=== PATIENT | male | born 1960 | race Caucasian/White ===

== ENCOUNTER 2016-07-23 14:16 | Inpatient (IN) | payer BC ==
[2016-07-23] MEDS ORDERED: TEMAZEPAM 15 MG CAP PO PRN (17:09)
[2016-07-23] MEDS ORDERED: ALBUTEROL 3 ML DEYVIAL IH PRN (17:09)
[2016-07-23] MEDS ORDERED: ONDANSETRON 4 MG/2 ML VIAL IVP PRN (17:09)
[2016-07-23] MEDS ORDERED: LORazepam 2 MG/ML INJ IVP PRN (17:09)
[2016-07-23] MEDS ORDERED: HYDROCODONE/APAP 5/325 TAB PO PRN (17:09)
[2016-07-23] MEDS ORDERED: HEPARIN 10,000 UNIT/10 ML MDV IVP ONE (17:09)
[2016-07-23] MEDS ORDERED: ONDANSETRON DISINTEGRATING 4 MG TAB PO PRN (17:09)
[2016-07-23] MEDS ORDERED: HEPARIN 10,000 UNIT/10 ML MDV IVP PRN (17:09)
[2016-07-23] MEDS ORDERED: NS W/ 20 KCl/L 1,000 ML IV SCH (17:15)
[2016-07-23] MEDS ORDERED: HEPARIN/DEXTROSE 500 ML IV SCH (17:30)
[2016-07-23 17:47] LABS: % IMMATURE GRANULYOCYTES 0.4 % (0.0-1.1); ABSOLUTE IMMATURE GRANULOCYTES 0.03 10^3/uL (0.00-0.10); ADD DIFF? NO; ADD MORPH? NO; ADD SCAN? NO; ATYPICAL LYMPHOCYTE FLAG 10 (0-99); FRAGMENT RBC FLAG 0 (0-99); HEMOGLOBIN 17.5 g/dL (13.7-17.5); LEFT SHIFT FLG 0 (0-99); LIPEMIA HEMOLYSIS FLAG 90 (0-99); MEAN CELL HEMOGLOBIN 32.6 pg (27.9-34.1); MEAN CELL VOLUME 93.3 fL (81.5-99.8); MEAN PLATELET VOLUME 10.3 fL (8.7-11.7); PLATELET CLUMPS FLAG 0 (0-99); PLATELET COUNT 264 10^3/uL (150-400); RED BLOOD CELL COUNT 5.36 10^6/uL (4.40-6.38); RED CELL DISTRIBUTION WIDTH 14.7 % (11.5-15.2)
[2016-07-23 17:56] LABS: ALANINE AMINOTRANSFERASE 37 IU/L (21-72); ALBUMIN 4.6 g/dL (3.5-5.0); ALKALINE PHOSPHATASE 57 IU/L (38-126); ANION GAP 19 mEq/L (8-16); ASPARTATE AMINOTRANSFERASE 32 IU/L (17-59); BILIRUBIN,TOTAL 1.1 mg/dL (0.1-1.4); CARBON DIOXIDE 21 mEq/l (22-31); CHLORIDE 103 mEq/L (97-110); CREATININE 1.3 mg/dL (0.7-1.3); GLOMERULAR FILTRATION RATE 58; GLUCOSE 104 mg/dL (70-100); POTASSIUM 4.3 mEq/L (3.5-5.2); SODIUM 143 mEq/L (134-144); TOTAL PROTEIN 7.9 g/dL (6.3-8.2)
[2016-07-23 18:08] LABS: TROPONIN I < 0.012 ng/mL (0-0.034)
[2016-07-23] MEDS: LORazepam 0.5 MG TAB PO PRN (18:13)
[2016-07-23] MEDS: NITROGLYCERIN 0.2 MG/HR PATCH TD SCH (18:38)
--- NOTE | 2016-07-23 18:59 | GHP ---
[f rep st] HISTORY AND PHYSICAL DATE OF ADMISSION: 07/23/2016 CHIEF COMPLAINT: Left shoulder pain. HISTORY OF PRESENT ILLNESS: This is a 55-year-old male who reports experiencing a left shoulder ache for the past week. He rates the pain and discomfort as high as 4 or 5 out of 10, and at the time of my interview with him on the med-surg floor, he says it is almost gone, but he can still tell it is there. This ache is not associated with position or movement nor exertion. He does not note any exa cerbating or mitigating factors which will relieve it. It is not associated with shortness of breath , orthopnea, PND or mariela anterior chest pain. Regarding this left shoulder ache, he also notes that he has been feeling fatigued for approximately the last 2-3 weeks. The fatigue is nonspecific. He says he just feels more tired than he usually wo uld. Again, this is not associated with shortness of breath, fever, chills, sweats, or cough. He cu riously enough also reported to his PCP back in [place] that he was unable to sleep on his lef t side. As he has a known strong family history of coronary disease, the PCP had done exercise stres s test and found to be normal. No definitive explanation could be made for why he could not sleep on his left side. He denies having fever, chills, sweats, nausea, vomiting, diaphoresis, abdominal pain, back pain or h eadache. There is no history of trauma to his shoulder. He is a moderately active person, but most recently has not been very active. His activity involves mostly bike riding. PAST MEDICAL HISTORY: Denies asthma, allergies, high blood pressure, diabetes or renal problems. SURGICAL HISTORY: None. ALLERGIES: No known allergies. CURRENT MEDICATIONS: From the EMR, and his home medications are only Crestor and Elisabeth tablet. These medications will be reconciled. FAMILY HISTORY: Positive for coronary artery disease. His brother at the age of 35 of sudden d eath. His father had coronary artery disease at the age of 50, and has had CABG x4 and numerous sten ts. 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 He move d permanently here to [place] in March 2016, although he had been traveling and staying here for over a year. He previously lived in [place]. He has a 20 pack-year history of tobacco, and h e stopped in 2015. Alcohol is rare and drugs none. PHYSICAL EXAMINATION: VITAL SIGNS: His pulse is normal, normal strength. Rhythm is atrial fibrilla tion with approximately ventricular rate of 80, respirations 16, nonlabored. His oxygen saturation i s 98% on supplemental oxygen. HEENT: Normal. His tongue and buccal mucosa show no signs of trauma. JVP is not elevated. CHEST: Chest wall nontender to palpation. Left shoulder is nontender to pal pation or to movement and shows no signs of trauma. LUNGS: Clear to percussion and auscultation wit hout wheezing or rales. HEART: Singular S1, physiologically split S2, an irregularly irregular rhyt hm, atrial fibrillation on the monitor at a controlled ventricular rate of approximately 80 at rest. No murmur or gallop is noted. ABDOMEN: Flat. Normoactive bowel sounds. No masses, tenderness, or organomegaly. EXTREMITIES: No edema, cyanosis or clubbing. LABORATORIES: All pending at the time of this dictation. ASSESSMENT: 1. Left shoulder pain with possible chest pain. This is possibly an angina equivalent. ECG is curr ently pending, as are troponin and a CPK. He currently reports that his pain is very minimal and fernanda ost not noticeable, and thus I believe it is improved, and if it is an anginal equivalent, it is curr ently under reasonable control at rest. Therapeutically, I am going to place nitroglycerin transderm ally and begin a heparin drip. Consultation with Cardiology and an echocardiogram will be ordered. It is my understanding that Dr. Justo Villa is planning to do cardiac catheterization due to the gentleman's high cardiac risk factors. 2. New onset atrial fibrillation, currently in good controlled rate. Will control the rate, if need ed, with beta blockers. Therapeutic anticoagulation will begin. 3. Hypertension. He has a history of hypertension and has been taking the calcium channel dario a nd an ARB in the form of Elisabeth. Will manage his blood pressure, as needed, with beta-blockers and hyd ralazine if it becomes acutely very high, greater than 160 mmHg. 4. Deep venous thrombosis prophylaxis will be with therapeutic anticoagulation. CODE STATUS: Full. POA has not been established. PLAN: Heparin, nitroglycerin, and cardiac stabilization. Should he accelerate, we will contact Dr. Villa immediately. His full cell labs along with an ECG and chest x-ray are all pending at this ti me. TIME: This admission required 50 minutes, greater than 50% to prepare his medical record and review records from Dr. Villa's office and discuss the case with them regarding this admission. BILLING: The gentleman will be admitted to inpatient status. It will likely require greater than 2 midnights to stabilize this gentleman's cardiac condition. /[id number]/MODL
[2016-07-23 19:15] LABS: INR 1.13 (0.83-1.16); PROTIME(PATIENT) 14.4 SEC (12.0-15.0)
[2016-07-23 20:00] LABS: APTT > 250.0 SEC (23.0-38.0)
[2016-07-23 20:46] LABS: COLOR YELLOW; LEUKOCYTE ESTERASE,URINE NEGATIVE (NEGATIVE); NITRITE,URINE NEGATIVE (NEGATIVE)
[2016-07-23] MEDS: ACETAMINOPHEN 325 MG TAB PO PRN (21:17)
[2016-07-23] MEDS: PATCH REMOVAL 1 EA PATCH TD SCH (21:20)
[2016-07-23] MEDS ORDERED: ZOLPIDEM TARTRATE 5 MG TAB PO PRN (22:36)
[2016-07-23] MEDS: PANTOPRAZOLE SODIUM 40 MG TAB PO SCH (23:11)
[2016-07-24] MEDS: LORazepam 0.5 MG TAB PO PRN ×3 (02:38→21:03)
[2016-07-24] MEDS: ACETAMINOPHEN 325 MG TAB PO PRN ×2 (02:38→19:34)
[2016-07-24 07:43] LABS: % IMMATURE GRANULYOCYTES 0.4 % (0.0-1.1); ABSOLUTE IMMATURE GRANULOCYTES 0.02 10^3/uL (0.00-0.10); ADD DIFF? NO; ADD MORPH? NO; ADD SCAN? NO; ATYPICAL LYMPHOCYTE FLAG 10 (0-99); FRAGMENT RBC FLAG 0 (0-99); HEMATOCRIT 42.6 % (40.0-51.0); HEMOGLOBIN 15.1 g/dL (13.7-17.5); LEFT SHIFT FLG 0 (0-99); LIPEMIA HEMOLYSIS FLAG 90 (0-99); MEAN CELL HEMOGLOBIN 32.8 pg (27.9-34.1); MEAN CELL HEMOGLOBIN CONCENTR. 35.4 g/dL (32.4-36.7); MEAN CELL VOLUME 92.6 fL (81.5-99.8); MEAN PLATELET VOLUME 10.2 fL (8.7-11.7); PLATELET CLUMPS FLAG 0 (0-99); PLATELET COUNT 230 10^3/uL (150-400); RED CELL DISTRIBUTION WIDTH 14.6 % (11.5-15.2)
[2016-07-24 08:30] LABS: ANION GAP 12 mEq/L (8-16); CALCIUM 8.7 mg/dL (8.5-10.4); CARBON DIOXIDE 18 mEq/l (22-31); CHLORIDE 110 mEq/L (97-110); CHOLESTEROL 156 mg/dL (140-220); CHOLESTEROL/HDL RATIO 3.63 RATIO (1.00-4.97); CREATININE 1.1 mg/dL (0.7-1.3); GLOMERULAR FILTRATION RATE > 60; GLUCOSE 106 mg/dL (70-100); HIGH DENSITY LIPOPROTEIN 43 mg/dL (40-65); LDL/HDL RATIO 1.74 RATIO (1.00-3.64); LOW DENSITY LIPOPROTEIN 75 mg/dL (80-100); MAGNESIUM 1.8 mg/dL (1.6-2.3); NON-HIGH DENSITY LIPOPROTEIN 113 mg/dL (90-129); POTASSIUM 4.6 mEq/L (3.5-5.2); SODIUM 140 mEq/L (134-144); TRIGLYCERIDE 194 mg/dL (40-150); VERY LOW DENSITY LIPOPROTEINS 38 mg/dL (8-25)
[2016-07-24] MEDS ORDERED: ASPIRIN EC 325 MG TAB PO ONE (08:30)
[2016-07-24] MEDS ORDERED: diphenhydrAMINE 25 MG CAP PO ONE (08:30)
[2016-07-24] MEDS ORDERED: FAMOTIDINE 20 MG TAB PO ONE (08:30)
[2016-07-24] MEDS ORDERED: DIAZEPAM 5 MG TAB PO ONE (08:30)
[2016-07-24 08:40] LABS: TROPONIN I < 0.012 ng/mL (0-0.034)
--- NOTE | 2016-07-24 08:57 | CPEKG ---
Heart Rate: 87 RR Interval: 690 QRSD Interval: 84 QT Interval: 372 QTC Interval: 448 QRS [place]: 76 T Wave [place]: 53 EKG Severity - ABNORMAL ECG - EKG Impression: ATRIAL FIBRILLATION, V-RATE 73-97 Electronically Signed By: Marcello Nelson 24-Jul-2016 10:21:23
[2016-07-24] MEDS ORDERED: LIDOCAINE 1% 30 ML SDV ONE (09:10)
[2016-07-24] MEDS ORDERED: MIDAZOLAM 2 MG/2 ML VIAL ONE ×3 (09:10→11:36)
[2016-07-24] MEDS ORDERED: fentaNYL 100 MCG/2 ML INJ ONE ×3 (09:10→12:40)
[2016-07-24] MEDS ORDERED: VERAPAMIL 5 MG/2 ML VIAL ONE ×2 (09:11→10:56)
[2016-07-24] MEDS ORDERED: HEPARIN 10,000 UNIT/10 ML MDV ONE ×2 (09:11→12:16)
[2016-07-24] MEDS ORDERED: IOPAMIDOL (ISOVUE-370) 150 ML BTL IV ONE ×4 (09:11→11:36)
[2016-07-24] MEDS ORDERED: LIDOCAINE 2% 5 ML SDV ONE (09:55)
[2016-07-24] MEDS ORDERED: PROPOFOL 200 MG/20 ML VIAL ONE ×2 (09:55)
--- NOTE | 2016-07-24 10:46 | SUROPNOTE ---
[facility] Operative Report - Surgery Date of Procedure: 07/24/16 Indication: This patient is a 55 year old man, with a history of hypertension, hyperlipidemia, 20 year smoking history (quit in 2014), and a strong family history of premature coronary disease in his brother and father, presenting with a 6 day history of left shoulder pain radiating to the left axilla and left anterior chest, new onset paroxysmal atrial fibrillation of unknown duration, and a 2-3 week history of fatigue. Burmese cardiovascular class IV anginal equivalent. Considering resting shoulder and chest discomfort, concerning for unstable anginal equivalent, stress testing was not performed. The patient was direct admitted to the hospital and received transdermal nitroglycerin and a heparin drip. Due to strong cardiac risk factors, new-onset paroxysmal atrial fibrillation, and class IV anginal equivalent, plan for the patient to undergo transesophageal echocardiogram, probable cardioversion, and right/left heart catheterization. Procedures performed: 1. Transesophageal echocardiogram 2. Cardioversion 3. Right and left heart catheterization with left ventricular and selective coronary angiography. 4. Balloon angioplasty, intravascular ultrasound imaging, intracoronary stent placement x2, and post-dilation balloon angioplasty in the circumflex. 5. Intravascular ultrasound imaging and intracoronary stent placement in the first obtuse marginal branch. Description of procedure: Description, risks, benefits and alternatives were discussed in detail. Informed consent was obtained. Anesthesia was performed by Dr. Piper with propofol. Patient underwent transesophageal echocardiography which did not show evidence of interatrial or appendage thrombus. There was no evidence of thrombus. Ventricular function was abnormal, with decreased LVEF of 25-30%. Echocardiography also demonstrated mild biatrial enlargement, trace-mild mitral regurgitation, and mild tricuspid regurgitation. Patient then received a 200 joule biphasic synchronized shock using hands-off pads converting to sinus rhythm. The patient was brought to the catheterization laboratory where a timeout was performed. The right arm was sterilely prepped and draped. 2% lidocaine utilized for local anesthetic. A 5-Micronesian hemostatic sheath was placed in the right brachial vein utilizing the IV site already present. A 5- Micronesian PWP catheter was utilized for right heart catheterization. Following the right heart catheterization, a 5/6-Micronesian slender hemostatic sheath placed right radial artery utilizing micropuncture technique. Intraarterial verapamil and intravenous heparin was administered. Diagnostic coronary angiography performed with 6-Micronesian, Jairo left-3.5 and Jairo right-4 catheter. All catheters were passed over a 0.035 guidewire. Pigtail catheter was then utilized for left heart catheterization and left ventricular angiography. 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 Plans were made for percutaneous intervention. A 6-Micronesian EBU 3.75 guide catheter was placed to engage the left coronary system. Additional intravenous heparin was administered. A 300cm Water Mangle Tender 50 wire was placed in the circumflex and a Turnpike Spiral catheter was placed over the wire. The Water Mangle Tender 50 was exchanged for a Water Mangle Tender 200 wire in order to cross further down the circumflex. The wire advanced further distally, but appears to have entered the subintimal space. A 3cc syringe was utilized to inject contrast into the distal vessel through the Turnpike catheter, which demonstrates that the catheter and wire are in the true lumen. The Water Mangle Tender 200 wire was exchanged for a long Grandslam wire. The Turnpike catheter was removed. A 2.5mm x 15mm Emerge balloon was utilized and positioned in the distal circumflex, inflated to 4 atmospheres. The balloon was positioned gradually proximal to the previous inflation and inflated a second time to 6 atmospheres. Next, the balloon was positioned more proximally to the mid circumflex and inflated a third time to 6 atmospheres. This restored blood flow distally. Next, ultrasound catheter was placed in the circumflex. Intracoronary nitroglycerin and verapamil were administered. Intravascular ultrasound imaging was performed to assess lesion length and reference vessel diameter, demonstrated 62mm of [id number]-[id number] disease. A short Prowater J wire was utilized and placed in the first obtuse marginal branch. Then, a 3.0mm x 38mm Synergy drug-eluding stent was chosen and carefully positioned in the proximal circumflex, just past the first obtuse marginal branch origin, extending to the mid-distal circumflex. This was deployed to 13 atmospheres. Stent balloon was removed. A 2.25mm x 28mm Synergy drug-eluding stent was chosen and carefully positioned in the distal circumflex, in an overlapping fashion to the previously placed stent. This was deployed to 11 atmospheres. Stent balloon was inflated twice to 18 and 20 atmospheres in the cprqpf-le-zmw stented segment. When removing the stent balloon, the wire that was placed distally became displaced and was pulled more proximally. The Turnpike Spiral catheter was re- introduced over the wire to re-position the Grandslam wire distally, however it could not be advanced. Instead the Grandslam wire was removed and a new short Prowater J was placed in the circumflex through the Turnpike catheter and the unit was advanced distally. Once the Turnpike was positioned distally, the wire was removed. Intracoronary nitroglycerin and verapamil was administered into the distal circumflex through the Turnpike. The first short Prowater J wire was re-introduced and placed back into the first obtuse marginal branch. The second short Prowater J was re-introduced, attempted for placement in the distal circumflex, but would not advance. Instead, the original long Water Mangle Tender 50 wire was placed through the Turnpike in the circumflex, but again could not advance distally. It appears that the wire is having difficulty advancing at the junction of the first and second stent overlap, likely being blocked by stent struts. The Water Mangle Tender 50 wire was removed and the Water Mangle Tender 200 wire was utilized instead. Ultimately, a wire was not able to be re-introduced and advanced in the distal circumflex for repeat intravascular ultrasound imaging of the circumflex. There is satisfactory result of stent placement by angiography. Next, the ultrasound catheter was placed in the first obtuse marginal branch and intravascular ultrasound imaging was performed to assess lesion length and reference vessel diameter. A new short Prowater J wire was placed in the circumflex. A 3.5mm x 28mm Synergy drug-eluding stent was chosen for the proximal obtuse marginal lesion, however would not cross. Both Prowater J wires were then placed in the first obtuse marginal branch. A 3.25mm x 20mm Emerge balloon was placed on the second Prowater J wire and positioned in proximal first obtuse marginal branch. The first Prowater J wire was replaced into the circumflex. The 3.25mm x 20mm Emerge balloon was inflated to 11 atmospheres. After inflation, the Emerge balloon was repositioned into the mid circumflex. The 3.5mm x 28mm Synergy drug-eluding stent was re-introduced and carefully positioned in the proximal first obtuse marginal branch, to cover the severe lesion. A second inflation device was utilized. The 3.25mm x 20mm Emerge balloon was inflated in the mid circumflex to 16 atmospheres for 16 seconds. The 3.5mm x 28mm Synergy drug-eluding stent was deployed to 16 atmospheres. Simultaneous to stent deployment, the Emerge balloon was positioned in the proximal circumflex, just distal to the obtuse marginal branch origin, and was also inflated to 16 atmospheres. Stent balloon and Emerge balloon were removed. Wires were removed. Intracoronary nitroglycerin and verapamil were administered. Final orthogonal angiography was performed, demonstrating satisfactory result. Arterial sheath was removed and TR band was placed. Venous sheath was removed in the CVC. Findings: 1. Hemodynamics: Right atrial pressure mean of 12, right ventricular pressure 29/9/13 end-diastolic, pulmonary artery pressure 29/18, mean of 22, pulmonary capillary wedge pressure mean of 17 no significant V wave. Aortic pressure 109/ 81, mean of 94, left ventricular pressure 115/11/20 end-diastolic. There was no pull back gradient across the aortic valve. 2. Saturations: Main pulmonary artery 75.7%, Ao 95.9%. Assumed Leobardo cardiac output 6.34L/min with cardiac index of 3.01L/min/m2. 3. Left ventricle: The left ventricle appears mildly dilated in size. Left ventricle is [normal] shape. Segmental wall motion is abnormal: there is severe posterior base hypokinesis and the remainder of the left ventricle is moderately hypokinetic. There is an ejection fraction of 20-25%. There are no filling defects or significant mitral regurgitation. The aortic root and ascending aorta appears normal, there is no dissection or aneurysm formation. 4. Coronary angiography: Left main: The left main is a very short bifurcating vessel. 5. Left anterior descending: This is a large vessel continuing all the way around the apex to the inferior apex. There is a small first diagonal branch and a moderate size second diagonal branch. The proximal left anterior descending is moderately calcified, with 30% proximal and mid vessel luminal irregularities. 6. Circumflex: The circumflex is co-dominant. It has a large first obtuse marginal branch, which has a long proximal 80-85% stenosis. The AV groove circumflex is totally occluded (likely chronic), filling the distal circumflex and the posterolateral branch by right to left and left to left collaterals. 7. Right coronary: This a co-dominant vessel with really very limited left ventricular branches. There is a proximal 75-80% stenosis. There are moderate right to left collaterals filling to the to the distal co-dominant circumflex. 8. Percutaneous intervention: Guided by angiography and intravascular ultrasound imaging, the distal circumflex chronic total occlusion was treated with balloon angioplasty and intracoronary stent placement x2, with excellent result demonstrated by angiography. Of note, repeat intravascular ultrasound imaging of the distal circumflex and stented segment was not performed due to difficulty re-introducing a wire distally. Then, guided by angiography and intravascular ultrasound imaging, the long proximal stenosis in the first obtuse marginal branch was treated with placement of a single intracoronary stent, with excellent result confirmed by angiography. Post-dilation balloon angioplasty was performed in the circumflex. Overall Impression: 1. New onset atrial fibrillation, successfully converted to normal sinus rhythm. 2. Cardiomyopathy. Decreased left ventricular systolic function, with ejection fraction of 20-25%, as well as severe posterior base hypokinesis and moderate hypokinesis in the remainder of the left ventricle. 3. 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 4. Severe long 80-85% stenosis in the proximal first obtuse marginal branch, treated with placement of a single intracoronary stent. 5. Phzbdxom-gm-iqqcxu disease in the proximal right coronary artery and mild disease in the proximal-mid left anterior descending. Plan: 1. Dual anti-platelet therapy, will start with Effient and aspirin. 2. Aggressive risk modification and high dose statin therapy. 3. Medical management of cardiomyopathy and decreased left ventricular systolic function. 4. Anticoagulation in the setting of atrial fibrillation. 5. ZIO monitor as an outpatient. 6. Close clinical follow up. Portions of this chart were entered by a scribe. I have reviewed this chart and agree with the documentation. Report scribed for Dr. Justo Villa. Report scribed by Dinah Nobles.
[2016-07-24] MEDS ORDERED: NITROGLYCERIN 1,500 MCG/15 ML VIAL MISC ONE (10:56)
[2016-07-24] MEDS ORDERED: PRASUGREL HCL 10 MG TAB ONE (11:06)
--- NOTE | 2016-07-24 13:22 | CPEKG ---
Heart Rate: 79 RR Interval: 759 P-R Interval: 244 QRSD Interval: 86 QT Interval: 364 QTC Interval: 418 P [place]: 49 QRS [place]: 47 T Wave [place]: 50 EKG Severity - ABNORMAL ECG - EKG Impression: SINUS RHYTHM EKG Impression: FIRST DEGREE AV BLOCK EKG Impression: PROBABLE LEFT ATRIAL ABNORMALITY Electronically Signed By: Marcello Nelson 24-Jul-2016 15:59:48
[2016-07-24] MEDS ORDERED: ATROPINE SULFATE 1 MG/10 ML SYR IVP PRN (16:46)
[2016-07-24] MEDS ORDERED: PRASUGREL HCL 10 MG TAB PO ONE (16:46)
[2016-07-24] MEDS ORDERED: NITROGLYCERIN 0.4 MG BTL SL PRN (16:46)
--- NOTE | 2016-07-24 16:47 | HOSPPROG ---
Hospitalist Progress Note Assessment/Plan: Is a 55-year-old male new to my care presenting with left shoulder pain and atrial fibrillation # acute coronary syndrome with chronic total occlusion of the distal circumflex treated with balloon angioplasty and intracoronary stent placement x2, severe long 80-85% stenosis in the proximal 1st obtuse marginal branch treated with stent # acute paroxysmal atrial fibrillation status post cardioversion # hypertension # insomnia Plan: -continue post cardiac catheterization care per Dr. Villa -start DOAC tomorrow morning per Dr. Allen Skinner as needed for sleep tonight Subjective: patient was seen in recovery and denies chest pain. He does reports some mild shortness of breath. Tells me was unable to sleep last night and is requesting Ambien Objective: Vital Signs Temp Pulse Resp BP Pulse Ox 36.6 C 84 18 124/94 H 100 07/24/16 16:03 07/24/16 16:03 07/24/16 16:03 07/24/16 16:03 07/24/16 16:03 Laboratory Results 07/24/16 07:29 07/24/16 07:29 07/23/16 07/24/16 07/25/16 05:59 05:59 05:59 Intake Total 2302 Output Total 300 350 Balance 2001 -350 PT 14.4 SEC (12.0-15.0) 07/23/16 18:55 INR 1.13 (0.83-1.16) 07/23/16 18:55 - Physical Exam Constitutional: no apparent distress, appears nourished, not in pain Ears, Nose, Mouth, Throat: moist mucous membranes, hearing normal, ears appear normal, no oral mucosal ulcers Cardiovascular: regular rate and rhythym, no murmur, rub, or gallop Respiratory: no respiratory distress, no rales or rhonchi, clear to auscultation ICD10 Worksheet Patient Problems: Problems Problem Status Diagnosed CAD (coronary artery disease) Acute
[2016-07-24] MEDS ORDERED: 1/2 NS 1,000 ML IV SCH (17:00)
[2016-07-24] MEDS: PANTOPRAZOLE SODIUM 40 MG TAB PO SCH (18:02)
[2016-07-24] MEDS: CARVEDILOL 3.125 MG TAB PO SCH (18:02)
[2016-07-24] MEDS: MULTIVITAMINS 1 EACH TAB PO SCH (18:04)
[2016-07-24] MEDS: NITROGLYCERIN 0.2 MG/HR PATCH TD SCH (18:05)
[2016-07-24] MEDS: OLMESARTAN MEDOXOMIL 20 MG TAB PO SCH (18:06)
[2016-07-24] MEDS: PATCH REMOVAL 1 EA PATCH TD SCH (20:40)
[2016-07-24] MEDS ORDERED: FENOFIBRATE 145 MG TAB PO SCH (21:00)
[2016-07-24] MEDS ORDERED: ROSUVASTATIN CALCIUM 40 MG TAB PO SCH (21:00)
[2016-07-25 03:34] LABS: % IMMATURE GRANULYOCYTES 0.2 % (0.0-1.1); ABSOLUTE IMMATURE GRANULOCYTES 0.01 10^3/uL (0.00-0.10); ADD DIFF? NO; ADD MORPH? NO; ADD SCAN? NO; ATYPICAL LYMPHOCYTE FLAG 0 (0-99); FRAGMENT RBC FLAG 0 (0-99); HEMOGLOBIN 14.5 g/dL (13.7-17.5); LEFT SHIFT FLG 0 (0-99); LIPEMIA HEMOLYSIS FLAG 90 (0-99); MEAN CELL HEMOGLOBIN 32.7 pg (27.9-34.1); MEAN CELL HEMOGLOBIN CONCENTR. 34.5 g/dL (32.4-36.7); MEAN CELL VOLUME 94.8 fL (81.5-99.8); MEAN PLATELET VOLUME 10.1 fL (8.7-11.7); PLATELET CLUMPS FLAG 0 (0-99); PLATELET COUNT 230 10^3/uL (150-400); RED BLOOD CELL COUNT 4.43 10^6/uL (4.40-6.38); RED CELL DISTRIBUTION WIDTH 14.8 % (11.5-15.2)
[2016-07-25 03:47] VITALS: BP 105/82; PULSE 85; RESP 20; TEMP 97.7; O2SAT 98
[2016-07-25 03:47] LABS: ALBUMIN 3.6 g/dL (3.5-5.0); ANION GAP 12 mEq/L (8-16); ASPARTATE AMINOTRANSFERASE 37 IU/L (17-59); BILIRUBIN,TOTAL 0.6 mg/dL (0.1-1.4); CALCIUM 9.3 mg/dL (8.5-10.4); CARBON DIOXIDE 19 mEq/l (22-31); CHLORIDE 110 mEq/L (97-110); CREATININE 1.3 mg/dL (0.7-1.3); GLOMERULAR FILTRATION RATE 58; GLUCOSE 105 mg/dL (70-100); LACTATE DEHYDROGENASE 366 IU/L (313-618); MAGNESIUM 1.9 mg/dL (1.6-2.3); POTASSIUM 4.2 mEq/L (3.5-5.2); SODIUM 141 mEq/L (134-144)
[2016-07-25] MEDS: ACETAMINOPHEN 325 MG TAB PO PRN ×2 (03:51→11:05)
--- NOTE | 2016-07-25 06:11 | CPEKG ---
Heart Rate: 90 RR Interval: 667 P-R Interval: 220 QRSD Interval: 84 QT Interval: 360 QTC Interval: 441 P [place]: 44 QRS [place]: 45 T Wave [place]: 40 EKG Severity - ABNORMAL ECG - EKG Impression: SINUS RHYTHM EKG Impression: FIRST DEGREE AV BLOCK EKG Impression: PROBABLE LEFT ATRIAL ABNORMALITY Electronically Signed By: Marcello Nelson 26-Jul-2016 10:49:39
[2016-07-25] MEDS: PANTOPRAZOLE SODIUM 40 MG TAB PO SCH (08:19)
[2016-07-25] MEDS: OLMESARTAN MEDOXOMIL 20 MG TAB PO SCH (08:21)
[2016-07-25] MEDS: MULTIVITAMINS 1 EACH TAB PO SCH (08:21)
[2016-07-25] MEDS: CARVEDILOL 3.125 MG TAB PO SCH (08:21)
[2016-07-25] MEDS: NITROGLYCERIN 0.2 MG/HR PATCH TD SCH (08:25)
[2016-07-25] MEDS ORDERED: LISINOPRIL 5 MG TAB PO SCH (09:00)
[2016-07-25] MEDS ORDERED: ASPIRIN EC 325 MG TAB PO SCH (09:00)
[2016-07-25] MEDS ORDERED: PRASUGREL HCL 10 MG TAB PO SCH (09:00)
--- NOTE | 2016-07-25 09:18 | ECHO ---
[id number] + + [id number] : : [place] [address] : : [phone] + + Adult Echocardiographic Report + ---+ :Name: ASUNCION HADLEY WStudy Date: 07/24/2016 02:06 PM BP: 123/97 mm Hg : : Hospital Admission Number: [id number] : :: 1960 Gender: Male Height: 74 in : :Age: 55 yrs Race: WH Weight: 185 l b : :Reason For Study: new afib, CAD, CP : : BSA: 2.1 mete rs2: :History: CP, new afib : + ---+ MMode/2D Measurements & Calculations IVSd: 0.90 cm RVDd: 3.7 cm FS: 10.4 % Ao root diam: LVPWd: 1.1 cm LVIDd: 5.2 cm EDV(Teich): 2.9 cm LVIDs: 4.6 cm 126.9 ml ESV(Teich): 98.4 ml EF(Teich): 22.5 % LVLd ap4: 9.6 cm SV(MOD-sp4): EDV(MOD-sp4): 48.0 ml 188.0 ml LVLs ap4: 8.6 cm ESV(MOD-sp4): 140.0 ml EF(MOD-sp4): 25.5 % Normal Measurement Values: + + :LVIDd (3.5-5.7cm) IVSd (0.6-1.1cm) LVPWd (0.6-1.1cm) Aortic Root (2.0-3.7cm)Left Atrium (1.5-4.0cm): :LV Vol(d) (76-115ml) LV Vol(s) (29-48ml) Ejec Fraction (50-65%)PV Mik (0.6- 1.2m/s) TV Mik (0.4-1.0m/s) : :MV E Mik (0.8-1.0m/s)MV A Mik (0.3-1.0m/s)LVOT Mik (0.7-1.2m/s) Asc Ao Mik ( 0.9-1.8m/s) : + + Doppler Measurements & Calculations MV E max mik: Ao V2 max: LV V1 max: PA V2 max: 40.1 cm/sec 86.1 cm/sec 64.4 cm/sec 61.8 cm/sec MV A max mik: Ao max PG: LV V1 max PG: PA max P.5 cm/sec 3.0 mmHg 1.7 mmHg 1.5 mmHg MV E/A: 0.79 TR max mik: 182.3 cm/sec TR max P.3 mmHg RAP systole: 5.0 mmHg RVSP(TR): 18.3 mmHg Left Ventricle The left ventricle is normal in size. There is normal left ventricular wall thickness. Left ventricular systolic function is severely reduced. Ejection Fraction = 25-30%%. Global hypokinesis more pronounced in the basal inferior/inferolateral sadns. Right Ventricle The right ventricle is normal in size and function. Atria The left atrial size is normal. Right atrial size is normal. Mitral Valve The mitral valve is normal in structure and function. There is no mitral valve stenosis. There is mild mitral regurgitation. Tricuspid Valve The tricuspid valve is normal in structure and function. There is no tricuspid stenosis. There is trace tricuspid regurgitation. Right ventricular systolic pressure is 18mmHg. Aortic Valve The aortic valve is trileaflet. There is no aortic stenosis. There is no aortic insufficiency. Pulmonic Valve The pulmonic valve is normal in structure and function. There is no pulmonic valvular regurgitation. Great Vessels The aortic root is normal size. Pericardium/Pleural trivial pericardial effusion. Conclusion A two-dimensional transthoracic echocardiogram with M-mode and Doppler was performed. Ejection Fraction = 25-30%%. Global hypokinesis more pronounced in the basal inferior/inferolateral sands. There is mild mitral regurgitation. Right ventricular systolic pressure is 18mmHg. trivial pericardial effusion. There is trace tricuspid regurgitation. Left ventricular systolic function is severely reduced. Final Reading Physician: Gonzalez Roblero electronically signed on 07/25/2016 09:17 AM Ordering Physician: QING QUINN Performed By: Nikkie Downing
--- NOTE | 2016-07-25 10:08 | PDCARPN ---
Cardiology Progress Note Chief Complaint: Mr. Melara is feeling well this AM. He remains in NSR. Hemodynamically stable. Radial artery site without hematoma or ecchymosis. Echo demonstrates LVEF of 25 -30% with global HK. NOrmal atrial dimensions and normal RVSP. Mr. Melara underwent PCI x 2 to the distal LCX and PCI x one to OM1. He also underwent MELISSA guided cardioversion. I spent 30 minutes reviewing medications. He will need to be on aspirin 81 mg and Effient 10 mg daily. In the setting of new onset AFib and sp DCCV and CHADS VASc of 3, he will require anticoagulation. Based on age, weight and Cr, will start Eliquis 5 mg po bid. Will plan for DAPT plus anticoagulation for at least one month post PCI. Discussed elimintating alcohol in the setting of CM and hx of etoh abuse. Assessment/Plan: Assessment: 1. CAD sp PCI x 2 to LCX and x one to OM1 2. Atrial Fibrillation: sp MELISSA/DCCV yesterday. CHADS VASC of 3. 3. Cardiomyopathy: LVEF 25-30% with global HK. Most likely multifactorial including ischemia, Afib with RVR 4. Hypertension Plan: -Aspirin 81 mg daily -Effient 10 mg daily -Coreg 3.125 mg bid -Olmsartan 40 mg daily -Eliquis 5 mg po bid -Crestor 40 mg daily -Fenofibrate 145 mg daily -Lasix 20 mg once daily -Potassium Chloride 10 meq daily -Follow up with me on Jul 31, 2016 -enroll in cardiac rehab -No alcohol -Pt to call our office with questions. -45 minutes spent coordinating care 07/25/16 10:12 07/25/16 10:33 Reviewed/Discussed With: multidisciplinary team Time Spent With Patient: 30 minutes spent with patient Objective: Vital Signs (8 Hrs) Temp Pulse Resp BP Pulse Ox 07/25/16 03:45 36.5 C 85 20 105/82 H 98 Intake/Output (24 Hrs) 07/24/16 07/25/16 07/26/16 05:59 05:59 05:59 Intake Total 2302 2350 Output Total 300 700 Balance 2001 1650 Intake: Oral (ml) 800 350 IV Infused (ml) 1502 2000 Heparin/Dextrose 500 ml @ 302 Per Protocol IV CONT CINDY Rx#:[id number] NS W/ 20 KCl/L 1,000 ml @ 1200 100 mls/hr IV CONT CINDY Rx#:[id number] 1/2 Ns 1,000 ml @ 125 mls 2000 /hr IV CONT CINDY Rx#: [id number] Output: Urine (ml) 300 700 Toilet 300 Urinal 700 Other: Weight 83.915 kg Intake Quantity Yes Sufficient Number of Voids Toilet 2 Result Diagrams: 07/25/16 03:12 07/25/16 03:12 Cardiac Labs: Cardiac Lab Results (72 Hrs) 07/24/16 07/23/16 07:29 16:15 Troponin I < 0.012 < 0.012 - Physical Exam Constitutional: WDWN Eyes: anicteric sclera Ears, Nose, Mouth, Throat: moist mucous membranes Cardiovascular: regular rate and rhythm, no murmurs, no rubs, no gallops Peripheral Pulses: 2+: carotid (R), carotid (L) Respiratory: clear to auscultate bilat Gastrointestinal: normoactive bowel sounds Skin: no rashes Musculoskeletal: no muscular tenderness Neurologic: AAOx3, CN II-XII grossly intact Psychiatric: cooperative, interactive, following commands ICD10 Worksheet Patient Problems: Problems Problem Status Diagnosed CAD (coronary artery disease) Acute
--- NOTE | 2016-07-25 11:20 | HOSPPROG ---
Hospitalist Progress Note Assessment/Plan: Is a 55-year-old male new to my care presenting with left shoulder pain / ACS and new onset atrial fibrillation # acute coronary syndrome with chronic total occlusion of the distal circumflex treated with balloon angioplasty and intracoronary stent placement x2, severe long 80-85% stenosis in the proximal 1st obtuse marginal branch treated with stent -cont asa and effient -BB, statin # CM - reduced EF 25-50% -cont BB, ARB, Lasix # acute paroxysmal atrial fibrillation status post MELISSA / cardioversion - chads- vasc 3, cont eliquis # hypertension # insomnia # full code Objective: Vital Signs Temp Pulse Resp BP Pulse Ox 36.5 C 85 20 105/82 H 98 07/25/16 03:45 07/25/16 03:45 07/25/16 03:45 07/25/16 03:45 07/25/16 03:45 Laboratory Results 07/25/16 03:12 07/25/16 03:12 07/24/16 07/25/16 07/26/16 05:59 05:59 05:59 Intake Total 2302 2350 Output Total 300 700 Balance 2001 1650 PT 14.4 SEC (12.0-15.0) 07/23/16 18:55 INR 1.13 (0.83-1.16) 07/23/16 18:55 ICD10 Worksheet Patient Problems: Problems Problem Status Diagnosed CAD (coronary artery disease) Acute
[2016-07-25] MEDS ORDERED: APIXABAN 5 MG TAB PO SCH (11:30)
--- NOTE | 2016-07-25 18:20 | GDS ---
[f rep st] DISCHARGE SUMMARY DISCHARGE DIAGNOSES: 1. Acute coronary syndrome. 2. Status post stenting of distal circumflex x2 and first obtuse marginal branch x1. 3. Cardiomyopathy with ejection fraction of 20% to 25%. 4. New onset atrial fibrillation, successfully converted to normal sinus rhythm, status post transes ophageal echocardiogram followed by cardioversion. 5. Hypertension. CONSULTANTS: Cardiology Dr. Justo Villa. HOSPITAL COURSE: For details, please see dictated history and physical by Dr. Justo Maldonado dated July 23, 2016. In brief, the patient is a 55-year-old male with a positive family history for logan ature coronary artery disease, who presented to the emergency department with left shoulder pain whic h was concerning for an anginal equivalent. He was treated with nitroglycerin and started on a heparin drip. Echocardiogram and cardiology consu ltation were obtained. The patient went for an angiogram due to his risk factors. Stents were place d as described above. He was also found to have new-onset atrial fibrillation and was rate controlle d with beta dario. He was started on therapeutic anticoagulation for a [id number] score of 3 and was discharged on Eliquis. The patient's symptoms completely resolved, and he is stable for dischar ge home. DISPOSITION: The patient is discharged home in stable condition. FOLLOWUP: Dr. Gonzalez Roblero, appointment on July 31. DISCHARGE MEDICATIONS: Please see [facility] for complete updated outpatient medication list. Regarding his medications, the patient was advised that he needs to remain on dual antiplatelet thera py with aspirin and Effient for at least 1 year and as directed by his manager functional thereafter. New medications on discharge include: 1. Aspirin 325 mg p.o. daily, #30, no refills. 2. Olmesartan or Benicar 40 mg p.o. daily, #30, no refills. 3. Carvedilol 3.125 mg p.o. b.i.d., #60, no refills. 4. Prasugrel 10 mg p.o. daily, #30, no refills. 5. Eliquis 5 mg p.o. b.i.d., #60, no refills. 6. Potassium 20 mEq p.o. daily, #30, no refills. 7. Lasix 20 mg p.o. daily, #30, no refills. /[id number]/MODL
[2016-07-26] MEDS ORDERED: POTASSIUM CL 20 MEQ PKT PO SCH (09:00)
[2016-07-26] MEDS ORDERED: FUROSEMIDE 20 MG TAB PO SCH (09:00)
[2016-07-28 13:31] LABS: APOLIPOPROTEIN B 92 mg/dL (()); BETA VLD CHOLESTEROL Not Detected mg/dL (<15); BETA VLD TRIGLYCERIDE Not Detected mg/dL (<15); CHOLESTEROL, TOTAL 160 mg/dL (()); CHYLOMICRONS CHOLESTEROL Not Detected (()); CHYLOMICRONS TRIGLYCERIDE Not Detected (()); HDL CHOLESTEROL 31 mg/dL (>=40); LDL CHOLESTEROL 75 mg/dL (()); LDL TRIGLYCERIDES 71 mg/dL (<=50); Lp(a) CHOLESTEROL 22 mg/dL (<3); LpX Not detected (()); TRIGLYCERIDES 217 mg/dL (()); VLDL CHOLESTEROL 32 mg/dL (<30); VLDL TRIGLYCERIDE 128 mg/dL (<120)
[2016-07-29 05:48] LABS: 2C19S INTERPRETATION See Comments (())
== END 2016-07-25 12:57 | disposition home or self-care (01) | DRG 247 ==
LOC: F2W 15:33
PROVIDERS: ADMIT Internal Medicine; ATTEND Internal Medicine
DX: I24.9 Acute ischemic heart disease, unspecified (principal); I25.10 Atherosclerotic heart disease of native coronary artery without angina pectoris; I25.82 Chronic total occlusion of coronary artery; I48.0 Paroxysmal atrial fibrillation; G47.00 Insomnia, unspecified; I10 Essential (primary) hypertension; Z87.891 Personal history of nicotine dependence; Z82.49 Family history of ischemic heart disease and other diseases of the circulatory system
CPT/HCPCS: 81225-90; 82172-90; 83695-90; 85520-90; C1725; C1753; C1769; C1874; C1887; C9600; C9601; J1644; J2250; J2704; J3010; Q9967

== ENCOUNTER 2016-07-28 22:22 | Observation (INO) | payer BC ==
--- NOTE | 2016-07-28 22:39 | CPEKG ---
Heart Rate: 70 RR Interval: 857 P-R Interval: 236 QRSD Interval: 90 QT Interval: 412 QTC Interval: 445 P Roma: 56 QRS Roma: 77 T Wave Roma: 34 EKG Severity - ABNORMAL ECG - EKG Impression: SINUS RHYTHM EKG Impression: FIRST DEGREE AV BLOCK Electronically Signed By: Justo Do 28-Jul-2016 23:24:05
[2016-07-28 22:48] LABS: % IMMATURE GRANULYOCYTES 0.4 % (0.0-1.1); ABSOLUTE IMMATURE GRANULOCYTES 0.02 10^3/uL (0.00-0.10); ADD DIFF? NO; ADD MORPH? NO; ADD SCAN? NO; ATYPICAL LYMPHOCYTE FLAG 10 (0-99); FRAGMENT RBC FLAG 0 (0-99); HEMATOCRIT 45.3 % (40.0-51.0); HEMOGLOBIN 16.2 g/dL (13.7-17.5); LEFT SHIFT FLG 0 (0-99); LIPEMIA HEMOLYSIS FLAG 90 (0-99); MEAN CELL HEMOGLOBIN 33.5 pg (27.9-34.1); MEAN CELL HEMOGLOBIN CONCENTR. 35.8 g/dL (32.4-36.7); MEAN CELL VOLUME 93.8 fL (81.5-99.8); MEAN PLATELET VOLUME 9.8 fL (8.7-11.7); PLATELET CLUMPS FLAG 0 (0-99); PLATELET COUNT 273 10^3/uL (150-400); RED BLOOD CELL COUNT 4.83 10^6/uL (4.40-6.38); RED CELL DISTRIBUTION WIDTH 14.6 % (11.5-15.2)
--- NOTE | 2016-07-28 23:18 | EDPHY ---
HPI/HX/ROS/PE/MDM Narrative: Chief complaint: Chest pain HPI: 55-year-old male who is 4 days status post cardiac stenting x3 by Dr. Villa presenting with a 1/10 chest discomfort that began at 5:45 p.m. today. Patient states that he presented to Dr. rhodes while last week after having 4 days of 4/10 left shoulder and chest pain. At that time he was noted to be in atrial fibrillation was admitted directly to [facility]. The following day he had a cardiac catheterization by Dr. Esparza into place 3 stents. Dates told him that he had had 1 vessel was 100% occluded. He was discharged the following morning with instructions that should he have any chest complaints of nausea presented immediately to the emergency department. Patient states that while at rest this evening pain started. Has persisted since then is still currently 1/10. It is described as a dull ache in his left shoulder. It is similar to the pain he had last week. No shortness of breath. No cough. No fevers or chills. No nausea or vomiting. He has a strong family history of coronary artery disease including a brother who of an [place] in his 30s in the father's had bypass and again the age. Patient is a former smoker having quit 2 years ago. Patient states that he has been compliant with all his discharge medications. ROS: 10 point Review of Systems is negative except as noted in the HPI. Physical exam: Gen: Awake, Alert, No Distress HEENT: Nose: no rhinorrhea Eyes: PERRLA, EOMI Mouth: Moist mucosa Neck: Supple, no JVD Chest: nontender, lungs clear to auscultation Heart: S1, S2 normal, no murmur Abd: Soft, non-tender, no guarding Back: no CVA tenderness, no midline tenderness Ext: no edema, non-tender Skin: no rash Neuro: CN II-XII intact, Sensation grossly intact, Strength 5/5 in bilateral upper and lower extremities ED Course: EC sinus rhythm with a rate of 70. He has a first-degree AV block. No acute ST or T-wave changes. Patient's symptoms unchanged. Troponin noted to be 0.199. This is consistent with a post catheterization troponin. I have discussed with Dr. Esparza and. He would like the patient admitted overnight to the hospitalist service for further monitoring. I have discussed with Dr. Arturo Frias, hospitalist. He will happily admit the patient to the [facility] for further evaluation. - Data Points Laboratory Results: Laboratory Results 07/28/16 22:40 07/28/16 22:40 07/28/16 22:40 WBC 5.46 10^3/uL (3.80-9.50) RBC 4.83 10^6/uL (4.40-6.38) Hgb 16.2 g/dL (13.7-17.5) Hct 45.3 % (40.0-51.0) MCV 93.8 fL (81.5-99.8) MCH 33.5 pg (27.9-34.1) MCHC 35.8 g/dL (32.4-36.7) RDW 14.6 % (11.5-15.2) Plt Count 273 10^3/uL (150-400) MPV 9.8 fL (8.7-11.7) Neut % (Auto) 56.5 % (39.3-74.2) Lymph % (Auto) 26.2 % (15.0-45.0) Mora % (Auto) 14.3 H % (4.5-13.0) Eos % (Auto) 2.2 % (0.6-7.6) Baso % (Auto) 0.4 % (0.3-1.7) Nucleat RBC Rel Count 0.0 % (0.0-0.2) Absolute Neuts (auto) 3.09 10^3/uL (1.70-6.50) Absolute Lymphs (auto) 1.43 10^3/uL (1.00-3.00) Absolute Monos (auto) 0.78 10^3/uL (0.30-0.80) Absolute Eos (auto) 0.12 10^3/uL (0.03-0.40) Absolute Basos (auto) 0.02 10^3/uL (0.02-0.10) Absolute Nucleated RBC 0.00 10^3/uL (0-0.01) Immature Gran % 0.4 % (0.0-1.1) Immature Gran # 0.02 10^3/uL (0.00-0.10) Sodium 144 mEq/L (134-144) Potassium 4.3 mEq/L (3.5-5.2) Chloride 106 mEq/L (97-110) Carbon Dioxide 23 mEq/l (22-31) Anion Gap 15 mEq/L (8-16) BUN 29 H mg/dL (7-23) Creatinine 1.4 H mg/dL (0.7-1.3) Estimated GFR 53 Glucose 98 mg/dL (70-100) Calcium 10.0 mg/dL (8.5-10.4) Troponin I 0.199 H ng/mL (0-0.034) NT-Pro-B Natriuret Pep 103 pg/mL (0-125) General Time Seen by Provider: 07/28/16 22:57 Initial Vital Signs: Initial Vital Signs Temperature (C) 36.5 C 07/28/16 22:38 Heart Rate 78 07/28/16 22:38 Respiratory Rate 18 07/28/16 22:38 Blood Pressure 129/99 H 07/28/16 22:38 O2 Sat (%) 99 07/28/16 22:38 O2 Delivery Mode Room Air Allergies/Adverse Reactions: No Known Allergies Allergy (Verified 07/28/16 22:24) Home Medications: Medication Instructions Recorded Rosuvastatin Calcium [Crestor 40mg 40 mg PO HS 12/28/15 (*)] FENOFIBRATE 160 mg PO HS 07/23/16 Omeprazole 20 mg PO DAILY 07/23/16 Testosterone Enanthate 4 mg IM Q14D 07/23/16 ZOLPIDEM TARTRATE [Ambien CR 12.5 12.5 mg PO HS PRN 07/23/16 mg] Apixaban [Eliquis] 5 mg PO BID #60 tab 07/25/16 Aspirin EC [Aspirin EC 325 mg (*)] 325 mg PO DAILY #30 tab 07/25/16 Carvedilol [Coreg (*)] 3.125 mg PO BIDMEAL #60 tab 07/25/16 Furosemide [Lasix 20 MG (*)] 20 mg PO DAILY #30 tab 07/25/16 Olmesartan Medoxomil [Benicar 20 40 mg PO DAILY #30 tab 07/25/16 mg (*)] Potassium Chloride Po [Klor 20 meq PO DAILY #30 pkt 07/25/16 Packets 20 meq (*)] Prasugrel HCl [Effient 10mg (*)] 10 mg PO DAILY #30 tab 07/25/16 Departure - Departure Disposition: [facility] ([place], [place])s Inpatient Acute Clinical Impression: Chest pain, CAD (coronary artery disease) Condition: Fair
[2016-07-28 23:32] LABS: ANION GAP 15 mEq/L (8-16); CARBON DIOXIDE 23 mEq/l (22-31); CHLORIDE 106 mEq/L (97-110); CREATININE 1.4 mg/dL (0.7-1.3); GLOMERULAR FILTRATION RATE 53; GLUCOSE 98 mg/dL (70-100); POTASSIUM 4.3 mEq/L (3.5-5.2); SODIUM 144 mEq/L (134-144)
[2016-07-28 23:44] LABS: TROPONIN I 0.199 ng/mL (0-0.034)
[2016-07-29] MEDS ORDERED: ZOLPIDEM TARTRATE 5 MG TAB PO ONE ×2 (00:07→02:00)
[2016-07-29] MEDS ORDERED: ZOLPIDEM TARTRATE 5 MG TAB PO PRN (02:08)
[2016-07-29] MEDS ORDERED: TESTOSTERONE ENANTHATE IM SCH (02:15)
--- NOTE | 2016-07-29 03:25 | GHP ---
[f rep st] HISTORY AND PHYSICAL DATE OF ADMISSION: 07/29/2016 The patient is a pleasant 55-year-old gentleman, who has a diagnosis of atrial fibrillation and coron jani artery disease with 2 stents, presents with a left-sided shoulder pain that radiated to his arm a nd perhaps to his chest, not accompanied with diaphoresis or shortness of breath. It is similar to s ymptoms that brought him to see Dr. Villa, his network infrastructure architect. He does note that he has been taking his Effient and aspirin, as well as his other medications as prescribed. He was sitting and watching TV when it happened. It lasted a number of hours. It did not escalate, as he is now pain-free. He expresses perhaps regret that he sought care for these symptoms, but he was reassured that it is prince ropriate for a man with a recent coronary intervention to seek care for chest symptoms. No PND, orth opnea, or lower extremity edema. REVIEW OF SYSTEMS: Complete review of systems conducted and negative, except as noted in the HPI. PAST MEDICAL HISTORY: 1. Coronary artery disease. 2. Systolic heart failure with EF of 15% to 20%. 3. Atrial fibrillation, on anticoagulation. ALLERGIES: No known drug allergies. HOME MEDICATIONS: Aspirin, prasugrel, Ambien, testosterone, simvastatin, omeprazole, olmesartan, fur osemide, fenofibrate, carvedilol, apixaban. 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 He is a nonsmoker . Drinks alcohol a number of times per week. FAMILY HISTORY: No coronary disease. PHYSICAL EXAM: VITAL SIGNS: Presenting temperature 36.5, blood pressure 129/99, pulse 78, breathing 18 times a minute, 98% on room air. GENERAL: No acute distress. HEENT: Sclerae anicteric. Oroph arynx clear. Mucous membranes are moist. NECK: Supple. No lymphadenopathy or JVD. LUNGS: Clear to auscultation bilaterally. HEART: S1, S2. ABDOMEN: Soft, nontender, nondistended. LOWER EXTREM ITIES: Without edema. Calves nontender. SKIN: Without rash. NEUROLOGIC: Nonfocal. LABS: White count 5.5, hematocrit 45, platelets are 273,000. BUN and creatinine are 29 and 1.4, whi ch is up from his baseline of about 1.3. Sodium 144, potassium 4.3, chloride 106, bicarb 23. Tropon in 0.199. It was undetectable during his last admission. There is no chest x-ray. EKG, interpreted by me, shows sinus at 70 with normal axis and intervals. No ST or T-wave changes. It is unchanged from prior. I discussed the case with Dr. Trey Do. ASSESSMENT/PLAN: A 55-year-old gentleman with recent coronary intervention, who presents with chest pain. 1. Chest pain. I suspect that this is perhaps related to recent stent placement. He is not consist ent with in-stent thrombosis or acute coronary syndrome. I will cycle his troponins. Continue his m edications. There is no indication for heparin. 2. Elevated creatinine. We will hold his Lasix and follow. He does have some systolic dysfunction. 3. Hypertension. Continue his ARB and his beta dario. 4. Prophylaxis. He is therapeutically anticoagulated. 5. Atrial fibrillation. He is currently in sinus and he is anticoagulated. DISPOSITION: Observation status [facility]. /[id number]/MODL
[2016-07-29] MEDS ORDERED: CARVEDILOL 3.125 MG TAB PO SCH (08:00)
[2016-07-29 08:06] VITALS: BP 134/93; PULSE 81; RESP 18; TEMP 97.9; O2SAT 98
[2016-07-29] MEDS ORDERED: PRASUGREL HCL 10 MG TAB PO SCH (09:00)
[2016-07-29] MEDS ORDERED: ASPIRIN EC 325 MG TAB PO SCH (09:00)
[2016-07-29] MEDS ORDERED: OLMESARTAN MEDOXOMIL 20 MG TAB PO SCH (09:00)
[2016-07-29] MEDS ORDERED: APIXABAN 5 MG TAB PO SCH (09:00)
[2016-07-29] MEDS ORDERED: FUROSEMIDE 20 MG TAB PO SCH (09:00)
[2016-07-29] MEDS ORDERED: POTASSIUM CL 20 MEQ PKT PO SCH (09:00)
[2016-07-29] MEDS ORDERED: PANTOPRAZOLE SODIUM 40 MG TAB PO SCH (09:00)
[2016-07-29 10:45] LABS: % IMMATURE GRANULYOCYTES 0.2 % (0.0-1.1); ABSOLUTE IMMATURE GRANULOCYTES 0.01 10^3/uL (0.00-0.10); ADD DIFF? NO; ADD MORPH? NO; ADD SCAN? NO; ATYPICAL LYMPHOCYTE FLAG 30 (0-99); FRAGMENT RBC FLAG 0 (0-99); HEMATOCRIT 43.6 % (40.0-51.0); HEMOGLOBIN 15.2 g/dL (13.7-17.5); LEFT SHIFT FLG 10 (0-99); LIPEMIA HEMOLYSIS FLAG 90 (0-99); MEAN CELL HEMOGLOBIN CONCENTR. 34.9 g/dL (32.4-36.7); MEAN CELL VOLUME 94.6 fL (81.5-99.8); MEAN PLATELET VOLUME 10.2 fL (8.7-11.7); PLATELET CLUMPS FLAG 0 (0-99); PLATELET COUNT 257 10^3/uL (150-400); RED BLOOD CELL COUNT 4.61 10^6/uL (4.40-6.38); RED CELL DISTRIBUTION WIDTH 14.6 % (11.5-15.2)
[2016-07-29 11:09] LABS: ALANINE AMINOTRANSFERASE 68 IU/L (21-72); ALBUMIN 3.9 g/dL (3.5-5.0); ALKALINE PHOSPHATASE 49 IU/L (38-126); ANION GAP 16 mEq/L (8-16); ASPARTATE AMINOTRANSFERASE 45 IU/L (17-59); BILIRUBIN,TOTAL 0.7 mg/dL (0.1-1.4); CALCIUM 9.6 mg/dL (8.5-10.4); CARBON DIOXIDE 21 mEq/l (22-31); CHLORIDE 108 mEq/L (97-110); CREATININE 1.2 mg/dL (0.7-1.3); GLOMERULAR FILTRATION RATE > 60; GLUCOSE 121 mg/dL (70-100); POTASSIUM 4.6 mEq/L (3.5-5.2); SODIUM 145 mEq/L (134-144); TOTAL PROTEIN 7.1 g/dL (6.3-8.2)
--- NOTE | 2016-07-29 12:37 | DX ---
PA lateral chest x-ray 1031 hours. History: Evaluate for CHF. Findings: No prior studies are available for comparison. Heart size and pulmonary vasculature are normal. Coronary stent is seen on the left. At the right tashi g base there is suspicious possible spiculated nodule measuring by 1.7 x 2 cm as well as possible rig ht hilar node measuring about 2.4 cm. The remainder the lungs are clear. There is no consolidation or effusion. There is moderate anterior wedge compression fracture superior endplate of L1. Impression: 1. Possible spiculated lesion right lung base only seen on the PA view as well as right hilar node. C onsider CT chest with contrast for further characterization. A secured text message was sent to Dr. Ayden Vance regarding this study at 1231 hours. A Follow-Up Required test result notification was sent via the indico service, 12:35:06 PM, 7, indico Message ID [id number].
--- NOTE | 2016-07-29 16:58 | PDDCSUM ---
Discharge Summary Discharge Summary: DISCHARGE SUMMARY FOLLOW-UP ITEMS: Get outpatient CT with IV contrast of the chest to follow up spiculated mass in the right lower lobe. DATE OF ADMISSION: 07/28/2016 DATE OF DISCHARGE: 07/29/2016 DISCHARGE DIAGNOSES: 1. Acute chest pain 2. Right lower lobe spiculated chest mass 3. Chronic coronary artery disease 4. Paroxysmal atrial fibrillation CONSULTATIONS: Cardiology by Dr. Trey Villa PROCEDURES / IMAGING: Chest x-ray demonstrating right lower lobe 1.5-2 cm spiculated mass, EKG demonstrating left ventricular hypertrophy and left ventricular conduction delay without any tachyarrhythmia CHIEF COMPLAINT: Acute chest pain SUBJECTIVE: Chest pain-free at time of discharge PHYSICAL EXAM ON DISCHARGE: Systolic blood pressure is 1/30, heart rate in the 80s, afebrile overnight, satting well on room air, clear to auscultation bilaterally without any expiratory wheezes or bronchial breath sounds, no crackles or rhonchi, heart rhythm is regular, no evidence of lower extremity edema LABS ON DISCHARGE: Troponin level 0.19, white blood cell count normal, creatinine normal HOSPITAL COURSE BY PROBLEM: 1. Acute chest pain. Atypical, ruled out for acute coronary syndrome with troponins which were down trending, marginally elevated from recent previous catheterization, no evidence of tachy arrhythmias on telemetry or EKG, unlikely to be pulmonary embolism given that he is on systemic anticoagulation and is either hypoxic nor tachycardic. Potential etiology includes discomfort symptoms after recent stent placement versus GERD versus muscular cause with resultant anxiety. Patient was seen in consultation by Dr. Villa and no further cardiac risk stratification was recommended. Did not recommend adjusting any of the patient's home medications for coronary artery disease. He recommended follow up with Dr. Roblero tomorrow in the clinic. I advised the patient that he could use as needed [id number] anti GERD medications and the patient may pursue this if his symptoms recur. We also provided the patient with a prescription for sublingual nitroglycerin if he experiences symptoms which are more similar in character to the symptoms which she experienced a week ago when he came in and received a cardiac catheterization with PCI x2. 2. Chronic coronary artery disease. Dr. Villa recommended that the patient remain on all of his home medications and follow up with Dr. Morrissey tomorrow. Did not recommend further cardiac risk stratification or echocardiogram at this time. 3. Paroxysmal atrial fibrillation. The patient was continued on his home beta- dario as well as systemic anticoagulation. 4. Right lower lobe spiculated lung mass. Patient had a chest x-ray which incidentally found a 1-2 cm right lower lobe spiculated mass and an outpatient CT with IV contrast is indicated. Have shared this information with Dr. Roblero, he will have this study performed for the patient through his office tomorrow. DISCHARGE MEDICATIONS: Please see official discharge medication reconciliation sheet in chart , patient was continued on all of his home medications. DISCHARGE INSTRUCTIONS: Please follow up with Dr. Roblero tomorrow and have a CT with IV contrast of the chest. Please see original history and physical by Dr. Arturo Frias for full details of this patient's presentation.
[2016-07-29] MEDS ORDERED: ROSUVASTATIN CALCIUM 40 MG TAB PO SCH (21:00)
[2016-07-29] MEDS ORDERED: FENOFIBRATE 145 MG TAB PO SCH (21:00)
== END 2016-07-29 12:35 | disposition home or self-care (01) ==
LOC: F1N 07-29 00:49
PROVIDERS: ADMIT Internal Medicine; ATTEND Internal Medicine
DX: R07.9 Chest pain, unspecified (principal); I25.10 Atherosclerotic heart disease of native coronary artery without angina pectoris; R91.1 Solitary pulmonary nodule; I48.0 Paroxysmal atrial fibrillation; Z95.5 Presence of coronary angioplasty implant and graft; Z82.49 Family history of ischemic heart disease and other diseases of the circulatory system; Z87.891 Personal history of nicotine dependence; Z79.82 Long term (current) use of aspirin
CPT/HCPCS: 71020; 93005; 99285; G0378